=== PATIENT | female | born 1980 | race Caucasian/White ===

== ENCOUNTER 2022-04-24 16:11 | Emergency (ER) | payer OTHER, SELFPAY ==
[2022-04-24 16:20] VITALS: BP 155/95; PULSE 115; RESP 20; TEMP 36.9; O2SAT 96; BMI 42.3
--- NOTE | 2022-04-24 16:25 | EXP.UTC ---
Discharge Plan Disposition Patient Disposition: Home, Self-Care Condition: Good Prescriptions Prescriptions: New amoxicillin [amoxicillin] 500 mg tablet 500 mg PO TID 10 Days Qty: 30 0RF methylprednisolone 4 mg Tablets,Dose Pack 4 mg PO DIRECTED Qty: 21 0RF ondansetron 4 mg Tablet,Disintegrating 4 mg PO Q8H PRN (Reason: Nausea) Qty: 12 0RF No Action potassium chloride 20 mEq tablet,ER particles/crystals 20 meq PO DAILY Label Comments: TAKE 1 TABLET BY MOUTH ONCE DAILY hydrochlorothiazide 25 mg tablet 25 mg PO DAILY Label Comments: TAKE 1 TABLET BY MOUTH ONCE DAILY IN THE MORNING FOR BLOOD PRESSURE mesalamine [Apriso] 0.375 gram capsule,extended release 24hr 0.375 g PO DAILY Referrals Follow up/Referrals: Panda Aburto [Primary Care Provider] - See instructions Activity Restrictions/Add. Instructions Additional Instructions/Restrictions: Drink plenty of fluids. Take tylenol or ibuprofen for pain or fever. Take the medications as directed. Follow up with your regular doctor. GO TO THE ER FOR ANY WORSENING SYMPTOMS Throw your tooth brush away and get a new one. Clinical Impressions Clinical Impression: Pharyngitis Instructions Patient Instructions: DI for Pharyngitis/Tonsillopharyngitis -- Adult Discharge ED Provider: Chi Dover [facility] General Stated complaint: sore throat Time Seen by Provider: 04/24/22 16:25 History of Present Illness Provider Complaint: She states that for the past 2 days she has had sore throat, sinus congestion and she has felt bad. Related Data Home Medications Medication Instructions Recorded Confirmed hydrochlorothiazide 25 mg tablet 25 mg PO DAILY . 04/24/22 04/24/22 mesalamine 0.375 gram 0.375 g PO DAILY . 04/24/22 04/24/22 capsule,extended release 24 hr (Apriso) potassium chloride 20 mEq 20 meq PO DAILY . 04/24/22 04/24/22 tablet,extended release(part/cryst) Previous Rx's Medication Instructions Recorded amoxicillin 500 mg tablet 500 mg PO TID 10 days #30 tabs 04/24/22 methylprednisolone 4 mg tablets in 4 mg PO DIRECTED #21 tabs 04/24/22 a dose pack ondansetron 4 mg disintegrating 4 mg PO Q8H PRN Nausea #12 tabs 04/24/22 tablet Allergies Allergy/AdvReac Type Severity Reaction Status Date / Time lisinopril Allergy Verified 04/24/22 16:30 promethazine [From Phenergan] Allergy Verified 04/24/22 16:30 [facility] Disclaimer: The information contained in this section may have been updated after the patient was seen, as this information can be updated by other users. Social History Smoking Status: Never smoker alcohol intake: never current occupational status: employed Travel in the last 8 weeks: None ROS Obtained: Yes All systems reviewed & no additional complaints except as documented Constitutional Constitutional: Reports chills and Reports fever(s) Eyes Eyes: Denies eye discharge ENT Ears, Nose, Mouth, and Throat: Reports as per HPI Cardiovascular Cardiovascular: Denies chest pain Respiratory Respiratory: Denies chest congestion and Reports cough Gastrointestinal Gastrointestingal: Reports nausea; Denies abdominal pain, constipation, cramping, diarrhea or vomiting Musculoskeletal Musculoskeletal: Denies arthralgias Integumentary/Breasts Skin/Breast: Denies rash Neurologic Neurologic: Denies paresthesias Physical Exam General General appearance: alert and in no apparent distress Head Head exam: atraumatic, normocephalic and normal inspection Eye Eye exam: Present normal appearance, PERRL and EOMI ENT ENT exam: Present mucous membranes moist and normal external ear exam Expanded ENT Exam TM/Canal exam: Bilateral TM: erythema and bulging Nose exam: Absent sinus tenderness Mouth exam: Present normal external inspection; Absent drooling Teeth exam: Present normal inspection Throat exam: Presen
[2022-04-24 16:49] LABS: UTC Strep Screen (Rapid) Negative (Negative)
[2022-04-24 17:22] VITALS: BP 155/95; PULSE 115; RESP 20; TEMP 36.9; O2SAT 96
== END 2022-04-24 17:22 | disposition home or self-care (01) ==
PROVIDERS: Emergency Provider Nurse Practitioner Family; PCP Family Medicine
DX: J02.9 Acute pharyngitis, unspecified (principal)
CPT/HCPCS: 87880; 99212; G0463

== ENCOUNTER 2023-06-11 12:46 | Emergency (ER) | payer OTHER, SELFPAY ==
[2023-06-11 12:47] VITALS: BP 175/92; PULSE 104; RESP 18; TEMP 36.9; O2SAT 96; BMI 41.5
[2023-06-11] MEDS: LACTATED RINGERS 1000ML 1,000 ML 999 ML IV (13:18)
[2023-06-11] MEDS: KETOROLAC 30MG/ML VIAL 15 MG IV (13:19)
[2023-06-11] MEDS: diphenhydrAMINE 50MG/ML VIAL 25 MG IV (13:22)
[2023-06-11] MEDS: ACETAMINOPHEN 1,000MG/100ML VIAL 1000 MG IV (13:23)
[2023-06-11] MEDS: DEXAMETHASONE 4MG/ML 1ML VIAL 10 MG IV (13:23)
[2023-06-11] MEDS: SUMAtriptan 6MG/0.5ML VIAL 6 MG SQ (13:25)
[2023-06-11] MEDS: METOCLOPRAMIDE HCL 10MG/2ML VIAL 10 MG IVP (13:26)
--- NOTE | 2023-06-11 13:40 | HMH.EDGENADL ---
Discharge Plan Disposition Patient Disposition: Home, Self-Care Chief Complaint: Headache Prescriptions Prescriptions: No Action potassium chloride 20 mEq tablet,ER particles/crystals 20 meq PO DAILY Patient Comments: TAKE 1 TABLET BY MOUTH ONCE DAILY hydrochlorothiazide 25 mg tablet 25 mg PO DAILY Patient Comments: TAKE 1 TABLET BY MOUTH ONCE DAILY IN THE MORNING FOR BLOOD PRESSURE mesalamine [Apriso] 0.375 gram capsule,extended release 24hr 0.375 g PO DAILY amoxicillin [amoxicillin] 500 mg tablet 500 mg PO TID 10 Days Qty: 30 0RF methylprednisolone 4 mg Tablets,Dose Pack 4 mg PO DIRECTED Qty: 21 0RF ondansetron 4 mg Tablet,Disintegrating 4 mg PO Q8H PRN (Reason: Nausea) Qty: 12 0RF Referrals Follow up/Referrals: Panda Aburto [Primary Care Provider] - See instructions Activity Restrictions/Add. Instructions Additional Instructions/Restrictions: Call your family doctor to establish care for this visit to the emergency department and schedule follow-up within 48 hours to ensure improvement. If you have any worsening of your condition or any other concerning signs or symptoms, return to the emergency department or your primary care doctor for further evaluation. Talk to your neurologist about abortive medications for migraine. Clinical Impressions Clinical Impression: Migraine Qualifiers: Migraine type: other Status migrainosus presence: with status migrainosus Intractability: intractable Qualified Code(s): G43.811 - Other migraine, intractable, with status migrainosus Discharge ED Provider: Amaury Rios General Adult [facility] General Chief complaint: Headache Stated complaint: WHITE, blurry vision in Rt eye Time Seen by Provider: 06/11/23 12:55 Mode of Arrival: Ambulatory Source of Information: Patient Limitations: No Limitations Description of Symptoms (Recalled from ER Triage Doc. by RN): Patient presents with complaints of right sided headache that radiates into neck. Patient states it has caused blurry vision in her right eye. Reports she has been dealing with headaches over the last 3 years but this episode has became worse gradually over the last 3 days. Patient reports pain is throbbing and rates it 8/10. History of Present Illness HPI narrative: 42-year-old female history of migraine disorder following up with neurology here in the near future presenting with headache. Started 3 days ago, radiates upward from her neck into her head. It is all right-sided, associated with intermittent blurry vision in her right eye. No facial swelling, double vision, nausea or vomiting, fevers or chills, pain with range of motion of neck. Has taken Excedrin Migraine, has not helped. Crescendo in nature, moderate in intensity at this time. Please note that above description of symptoms, in this electronic medical record under categorization of recalled from ER triage doctor by RN are reflective of an initial nursing assessment, however, is not reflective of my full history and physical exam that was personally taken and clarified. Consequentially, this preceding description of symptoms, which may include the patient's categorized chief complaint in the EMR, do not reflect my personal clinical impression, and the ultimate description of history of present illness and patient stated complaints should be deferred to this section of the note. Unless stated otherwise or congruent with this section of the note, additional signs, symptoms, or incongruence should be interpreted as inaccurate with my clinical impression. Related Data Home Medications Medication Instructions Recorded Confirmed hydrochlorothiazide 25 mg tablet 25 mg PO DAILY . 04/24/22 04/24/22 mesalamine 0.375 gram 0.375 g PO DAILY . 04/24/22 04/24/22 capsule,extended release 24 hr (Apriso) potassium chloride 20 mEq 20 meq PO DAILY . 04/24/22 04/24/22 tablet,extended release(part/cryst) Previous Rx's Medication Instructions Recorded amoxicillin 500 mg tablet 500 mg PO TID 10 days #30 tabs 04/24/22 methylprednisolone 4 mg tablets in 4 mg PO DIRECTED #21 tabs 04/24/22 a dose pack ondansetron 4 mg disintegrating 4 mg PO Q8H PRN Nausea #12 tabs 04/24/22 tablet Allergies Allergy/AdvReac Type Severity Reaction Status Date / Time lisinopril Allergy Verified 04/24/22 16:30 promethazine [From Phenergan] Allergy Verified 04/24/22 16:30 PFSH PFSH Disclaimer: The information contained in this section may have been updated after the patient was seen, as this information can be updated by other users. Social History (Updated 04/24/22 @ 20:17 by Chi Dover APRN) Smoking Status: Never smoker alcohol intake: never current occupational status: employed Travel in the last 8 weeks: None ROS Obtained: Yes All systems reviewed & no additional complaints except as documented Physical Exam General General appearance: alert and in no apparent distress Head Head exam: atraumatic and normocephalic Eye Eye exam: Present normal appearance, PERRL and EOMI ENT ENT exam: Present mucous membranes moist Neck Neck exam: Present normal inspection, full ROM and trachea midline; Absent meningismus Respiratory Respiratory exam: Present normal lung sounds bilaterally; Absent respiratory distress, wheezes, stridor, accessory muscle use or prolonged expiratory phase Cardiovascular Cardiovascular exam: Present regular rate and normal rhythm Abdominal Exam Abdominal exam: Present soft; Absent distention, tenderness, guarding, rebound or rigidity Extremities Exam Extremities exam: Absent edema Neurological Exam Neurological exam: Present alert, oriented X3, CN II-XII intact and normal gait; Absent motor sensory deficit Skin Skin exam: Present warm and dry; Absent diaphoresis or erythema Medical Decision Making Medical Records Medical records reviewed: Yes I reviewed the patient's medical records. Mitesh Inquiry Pt receiving controlled substance: No Mitesh was queried for this patient: No Vital Signs: 06/11/23 12:47 Temperature 98.4 F Temperature Source Oral Pulse Rate [Right] 104 H Respiratory Rate 18 Blood Pressure [Right Arm] 175/92 H Blood Pressure Mean [Right Arm] 119 Blood Pressure Source [Right Arm] Automatic Cuff 02 Sat by Pulse Oximetry 96 Oxygen Delivery Method Room Air Orders (Tests/Meds): ED MEDICATIONS Discontinued Medications Generic Name Dose Route Start Last Admin Trade Name Magdalenoq PRN Reason Stop Dose Admin Acetaminophen 1,000 mg 06/11/23 12:56 06/11/23 13:23 Acetaminophen 1,000mg/100ml Vial IV 06/11/23 12:57 1,000 mg ONCE ONE Administration Dexamethasone Sodium Phosphate 10 mg 06/11/23 12:56 06/11/23 13:23 Dexamethasone 4mg/Ml 1ml Vial IV 06/11/23 12:57 10 mg ONCE ONE Administration Diphenhydramine HCl 25 mg 06/11/23 12:56 06/11/23 13:22 Diphenhydramine 50mg/Ml Vial IV 06/11/23 12:57 25 mg ONCE ONE Administration Lactated Ringer's 1,000 mls @ 999 mls/hr 06/11/23 12:56 06/11/23 13:18 Lactated Ringer's 1000 Ml Bag IV 06/11/23 13:56 999 mls/hr .Q1H1M ONE Administration Ketorolac Tromethamine 15 mg 06/11/23 12:56 06/11/23 13:19 Ketorolac 30mg/Ml Vial IV 06/11/23 12:57 15 mg ONCE ONE Administration Metoclopramide HCl 10 mg 06/11/23 12:56 06/11/23 13:26 Metoclopramide Hcl 10mg/2ml Vial IVP 06/11/23 12:57 10 mg ONCE ONE Administration Sumatriptan Succinate 6 mg 06/11/23 12:56 06/11/23 13:25 Sumatriptan 6mg/0.5ml Vial SQ 06/11/23 12:57 6 mg ONCE ONE Administration Medical Decision Narrative: 42-year-old female history of migraine disorder following up with neurology here in the near future presenting with headache. Started 3 days ago, radiates upward from her neck into her head. It is all right-sided, associated with intermittent blurry vision in her right eye. No facial swelling, double vision, nausea or vomiting, fevers or chills, pain with range of motion of neck. Has taken Excedrin Migraine, has not helped. Crescendo in nature, moderate in intensity at this time. Patient does not appear to be in any acute distress on my evaluation. History obtained with patient. Neurologically intact on my exam. Very well-appearing and does not appear to be photophobic. Patient was placed in observation beginning at 1 PM in order to give headache medications, reevaluate, ensure improvement and determine need for admission versus home-going. The patient was provided headache cocktail with acetaminophen, Toradol, Decadron, Reglan, Benadryl, sumatriptan and IV fluids while awaiting results. On reevaluation, at 2 PM, patient stating she has no headache and feeling much better. At this time, I feel patient is appropriate for discharge. Total observation time 1 hour. Because patient at baseline without signs or symptoms of clinical decompensation, deemed appropriate for discharge. Results were relayed to patient who voiced understanding and were agreeable to outpatient management and follow up. I discussed my clinical impression with patient and answered all questions. At this time, the evidence for any other entities in the differential is insufficient to warrant any further testing or ED observation. This was explained as well. Advisory was given that persistent or worsening symptoms require further evaluation. I confirmed the understanding of this discussion. Critical Care Critical Care Time Critical Care Time: No
[2023-06-11 14:25] VITALS: BP 136/100; PULSE 90; RESP 18; TEMP 36.8; O2SAT 98
== END 2023-06-11 14:25 | disposition home or self-care (01) ==
PROVIDERS: Emergency Provider Emergency Medicine; PCP Family Medicine
DX: G43.811 Other migraine, intractable, with status migrainosus (principal)
CPT/HCPCS: 96361; 96374; 96375; 99284; J0131

== ENCOUNTER 2023-07-08 16:37 | Outpatient (CLI) | payer OTHER, SELFPAY ==
[2023-07-08 16:57] LABS: Basophils # 0.1 K/mm3 (0-0.2); Basophils % 0.7 % (0.1-2.0); Eosinophils # 0.3 K/mm3 (0.0-0.4); Eosinophils % 3.1 % (0.1-12.0); Hematocrit 46.8 % (37.0-47.0); Hemoglobin 15.3 g/dL (12.2-16.2); Lymphocytes # 2.4 K/mm3 (0.7-4.5); Lymphocytes % 26.7 % (10-50); Mean Corpuscular HGB Conc 32.6 g/dL (31.8-35.4); Mean Corpuscular Hemoglobin 29.8 pg (27.0-31.2); Mean Corpuscular Volume 91.4 fl (81-99); Mean Platelet Volume 7.6 fl (7.4-10.4); Monocytes # 0.4 K/mm3 (0.1-1.0); Monocytes % 4.2 % (1.7-9.3); Neutrophils # 5.8 K/mm3 (1.8-7.8); Neutrophils % 65.3 % (37.0-80.0); Platelet Count 384 K/mm3 (142-424); Red Blood Count 5.12 M/mm3 (4.20-5.40); Red Cell Distribution Width 14.1 % (11.5-17.5); White Blood Count 8.9 K/mm3 (4.8-10.8)
[2023-07-08 17:08] LABS: Chloride 101 mmol/L (98-107); Potassium 3.7 mmoL/L (3.5-5.1); Sodium 137 mmol/L (136-145)
[2023-07-08 17:11] LABS: Alanine Aminotransferase 39 U/L (12-78); Albumin Level 4.5 g/dl (3.5-5.0); Albumin/Globulin Ratio 1.3 (1.1-1.8); Alkaline Phosphatase 46 U/L (38-126); Anion Gap 14.7 mEq/L (5-15); Aspartate Amino Transferase 47 U/L (14-36); Bilirubin,Total 0.6 mg/dl (0.2-1.3); Blood Urea Nitrogen 14 mg/dl (7-17); Carbon Dioxide 25 mmol/L (22.0-30.0); Estimated Glomerular Filt Rate 91 ml/min (>60); GFR (African American) 110 ML/MIN (>60); Globulin 3.4 g/dL (1.3-3.2); Total Protein,Serum 7.9 g/dl (6.3-8.2)
[2023-07-08 17:12] LABS: Calcium 9.6 mg/dl (8.4-10.2); Glucose 165 mg/dl (74-100)
[2023-07-08 17:42] LABS: Thyroid Stimulating Hormone 1.44 uIU/mL (0.465-4.68)
[2023-07-08 18:57] LABS: Vitamin B12 919 pg/mL (239-931)
== END 2023-07-08 23:59 | disposition home or self-care (01) ==
LOC: RAD 16:38
PROVIDERS: PCP Family Medicine; Visit Provider Specialist
DX: G43.811 Other migraine, intractable, with status migrainosus (principal); G47.30 Sleep apnea, unspecified; I10 Essential (primary) hypertension; F41.9 Anxiety disorder, unspecified
CPT/HCPCS: 36415; 80053; 82607; 82746; 84443; 85025; 94762

== ENCOUNTER 2023-07-28 13:48 | Outpatient (CLI) | payer OTHER, SELFPAY ==
--- NOTE | 2023-07-28 13:48 | MR_ITS ---
FINAL REPORT CLINICAL HISTORY: worsening headache COMPARISON: None FINDINGS: Multiplanar MR imaging of the brain was performed without and with contrast. There is no evidence of intracranial hemorrhage or mass. No abnormal extra-axial fluid collection is seen. The ventricular size is within normal limits. There is no evidence of shift of the midline structures. The posterior fossa and brainstem have an unremarkable appearance. No area of abnormal restricted diffusion is identified. No abnormal contrast enhancement is seen. Normal major vessel vascular flow voids are noted. IMPRESSION: No acute intracranial abnormality identified. Reviewed, Interpreted and Dictated by Len Lino MD Transcribed by Yaneth Garcia Authenticated and [facility]
[2023-07-28] MEDS: GADOTERIDOL INJ 20ML SYRINGE 20 ML IV (14:47)
[2023-07-28] MEDS: SODIUM CHLORIDE 0.9% 10ML SYR (RAD ONLY) 10 ML IV (14:47)
== END 2023-07-28 23:59 | disposition home or self-care (01) ==
LOC: RAD 13:48
PROVIDERS: PCP Family Medicine; Visit Provider Specialist
DX: G47.30 Sleep apnea, unspecified; I10 Essential (primary) hypertension; F41.9 Anxiety disorder, unspecified; G43.811 Other migraine, intractable, with status migrainosus
CPT/HCPCS: 70553; A9576